=== PATIENT | male | born 1965 ===

== ENCOUNTER 2016-10-16 21:23 | Emergency (ER) | payer OTHER ==
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
[2016-10-16 21:28] VITALS: BP 164/106; PULSE 93; TEMP 97.8; BMI 25.4
[2016-10-16] MEDS ORDERED: OXYCODONE/APAP 5/325MG COMBO TABLET PO ONE (21:41)
[2016-10-16] MEDS ORDERED: IBUPROFEN 600 MG TABLET (FP) PO ONE ×2 (23:22→23:26)
[2016-10-16] MEDS ORDERED: METHOCARBAMOL 500 MG TABLET PO ONE (23:23)
[2016-10-16] MEDS ORDERED: METHOCARBAMOL 500 MG TABLET ONE (23:26)
== END 2016-10-16 23:42 | disposition home or self-care (01) ==
LOC: JER 21:23
DX: S09.8XXA Other specified injuries of head, initial encounter (principal); V43.52XA Car driver injured in collision with other type car in traffic accident, initial encounter; Y92.488 Other paved roadways as the place of occurrence of the external cause; Y99.8 Other external cause status
CPT/HCPCS: 70450-TC; 72125-TC; 99283-25